=== PATIENT | male | born 1985 | race Caucasian/White ===

== ENCOUNTER 2016-03-20 09:56 | Emergency (ER) | payer BC ==
[2016-03-20 10:24] VITALS: BP 123/81
== END 2016-03-20 13:55 | disposition left against medical advice (07) ==
LOC: ED 09:56
DX: R07.9 Chest pain, unspecified (principal)
CPT/HCPCS: 93005

== ENCOUNTER 2016-03-21 04:48 | Emergency (ER) | payer BC ==
[2016-03-21 05:01] VITALS: BP 137/78
--- NOTE | 2016-03-21 05:50 | ED ---
Thomsa Buck Karl, scribed for Alejandro Vega MD on 03/21/16 at 0511 . HPI Chest Pain - HPI Summary HPI Summary: Pt is a 30 y/o male that presents to the ED c/o intermittent CP rated at a 4/ 10. Pt reported that his pain began yesterday at approx 02:00 and is aggravated by laying down, swallowing, and taking deep breaths. Pt stated he believes it is esophageal pain and not CP because it hurts mid way down his sternum when he swallows, stating he feels a "sharp pain" on the right side of his esophagus. Pt stated that he has taken ibuprofen and pepto bismol but neither have alleviated his symptoms. Hx: GERD. - History of Current Complaint Chief Complaint: EDChestPainROMI Time Seen by Provider: 03/21/16 05:07 Hx Obtained From: Patient Timing: Constant Initial Severity: Mild Current Severity: Mild Pain Intensity: 4 - chest/esophageal pain Pain Scale Used: 0-10 Numeric Chest Pain Location: Mid Sternal Character: Sharp/Stabbing Aggravating Factor(s): Position - laying down, Deep Breaths, Other: - swallowing Alleviating Factor(s): Nothing Associated Signs and Symptoms: Positive: Chest Pain - Allergy/Home Medications Allergies/Adverse Reactions: Allergies Allergy/AdvReac Type Severity Reaction Status Date / Time No Known Allergies Allergy Verified 03/21/16 05:01 PMH/Surg Hx/FS Hx/Imm Hx Endocrine/Hematology History: Denies: Hx Anticoagulant Therapy, Hx Diabetes, Hx Thyroid Disease Cardiovascular History: Denies: Hx Hypertension, Hx Pacemaker/ICD Respiratory History: Denies: Hx Asthma, Hx Chronic Obstructive Pulmonary Disease (COPD) GI History: Denies: Hx Ulcer Sensory History: Denies: Hx Hearing Aid Psychiatric History: Denies: Hx Panic Disorder Infectious Disease History: No Infectious Disease History: Denies: Hx Hepatitis, Hx Human Immunodeficiency Virus (HIV), Traveled Outside the [place] in Last 30 Days - Family History Known Family History: Positive: Hypertension, Diabetes - Social History Alcohol Use: None Substance Use Type: Reports: None Amount Used/How Often: 2 cigs per day Review of Systems Constitutional: Negative Eyes: Negative ENT: Negative Positive: Chest Pain - "esophageal pain" Respiratory: Negative Gastrointestinal: Negative Genitourinary: Negative Musculoskeletal: Negative Skin: Negative Neurological: Negative Psychological: Normal All Other Systems Reviewed And Are Negative: Yes Physical Exam Triage Information Reviewed: Yes Vital Signs On Initial Exam: Initial Vitals Temp Pulse Resp BP Pulse Ox 98.4 F 85 12 137/78 100 03/21/16 04:59 03/21/16 04:59 03/21/16 04:59 03/21/16 04:59 03/21/16 04:59 Vital Signs Reviewed: Yes Appearance: Positive: Well-Appearing, No Pain Distress, Thin Skin: Positive: Warm Eyes: Positive: NORRIS ENT: Positive: Hearing grossly normal Neck: Positive: Supple Respiratory/Lung Sounds: Positive: Clear to Auscultation, Breath Sounds Present Cardiovascular: Positive: Normal Abdomen Description: Positive: Nontender, Soft Bowel Sounds: Positive: Present Musculoskeletal: Positive: Strength/ROM Intact Neurological: Positive: Sensory/Motor Intact, Alert, Oriented to Person Place, Time Psychiatric: Positive: Normal Diagnostics - Vital Signs Vital Signs Temp Pulse Resp BP Pulse Ox 03/21/16 04:59 98.4 F 85 12 137/78 100 - Laboratory Lab Statement: Any lab studies that have been ordered have been reviewed, and results considered in the medical decision making process. - Radiology cxr Xray Interpretation: No Acute Changes Radiology Interpretation Completed By: ED Physician - EKG 05:02 EKG Interpretation: NSR at 72 bpm, No STEMI Re-Evaluation - Re-Evaluation First Eval Re-Evaluation Time: 06:25 - results d/w pt Change: Improved Chest Pain Course/Dx - Diagnoses Provider Diagnoses: Chest pain, Dyspepsia Discharge - Discharge Plan Condition: Stable Disposition: HOME Prescriptions: Famotidine TAB* [Pepcid TAB*] 20 mg PO BID #14 tab Patient Education Materials: Diet for Ulcers and Gastritis (ED), Gastroesophageal Reflux Disease (ED), Esophageal Spasm (ED) Referrals: No Primary Care Phys,NOPCP [Primary Care Provider] - Markus Gutierrez MD [Medical Doctor] - 1 Week The documentation as recorded by the Thomas jim Karl accurately reflects the service I personally performed and the decisions made by me, Alejandro Vega MD.
--- NOTE | 2016-03-21 07:35 | RAD ---
HISTORY: Chest pain COMPARISONS: None VIEWS: 2: Frontal dual-energy and lateral views of the chest. FINDINGS: CARDIOMEDIASTINAL SILHOUETTE: The cardiomediastinal silhouette is normal. CARLOS A: The carlos a are normal. PLEURA: The costophrenic angles are sharp. No pleural abnormalities are noted. LUNG PARENCHYMA: There is a calcified granuloma of the left lower lung field on the frontal view. ABDOMEN: The upper abdomen is clear. There is no subphrenic gas. BONES AND SOFT TISSUES: No bone or soft tissue abnormalities are noted. OTHER: None. IMPRESSION: NO ACTIVE CARDIOPULMONARY DISEASE.
== END 2016-03-21 07:00 | disposition home or self-care (01) ==
LOC: ED 04:48
DX: R07.9 Chest pain, unspecified (principal); R10.13 Epigastric pain
CPT/HCPCS: 71020; 93005; 99282

== ENCOUNTER 2017-12-16 13:44 | Emergency (ER) | payer BC, OTHER ==
--- OUTSIDE RECORDS SUMMARY | 2017-12-16 14:31 | XMS REPORT ---
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 Cigarette Use Patient is a current cigarette 5-6 cigs a day , trying to quit smoker, smokes every day , has quit for almost 1 year in past ETOH Use 1 Jigger scotch a week Allergies, Adverse Reactions, Alerts Description No Information Medications Medication Date Status Form Strength Qnty SIG Indications Ordering Provider No Active 11/18/2017 Active Unknown Medications Vital Signs Date Vital Result Comment 11/18/2017 BP Systolic 128 mmHg BP Diastolic 72 mmHg Heart Rate 88 /min Body Temperature 97.7 F Respiratory Rate 18 /min Height 68 inches 5'8" Weight 207.12 lb BMI (Body Mass Index) 31.5 kg/m2 Right Visual Acuity Distance 20 Left Visual Acuity Distance 20 Results Test Date Test Result H/L Range Note Ua - Non Micro (Fma) 11/18/2017 Appearance clear Color yellow Glucose, Urine (Fma/CMC/CTX) neg Bilirubin neg Ketones neg SP Grav 1.025 Blood neg PH 5.5 Protein neg Urobil 0.2 Nitrite neg Leukocytes (Fma/CMC/Centrex) trace Procedures Description No Information Plan of Care 11/18/2017 - Jed Dove-CZ02.4 Encounter for examination for driving licenseFollow up:Followup:. (Follow up)AllNew Medication:No Active MedicationsComments:~B_~U_Medication Management~b_~u_ Patient Understands medications he's taking? Yes No no routine meds Are there Barriers to Adherence? Yes No na Has the patient been asked about herbal supplements and therapies, and OTC meds? Yes No ~B_~U_Care Plan~b_~u_1. Patient has beenqueried about patient's goals/preferences and functional/ lifestyle goals at relevant visits. If relevant, describe: na2. Treatment goals as explained to the patient: aboveroutine health maintenance and disease prevention 3. Are there barriers to meeting treatment goals? Yes No If Yes, please describe:4. Self-Management goals as described to the patient: Yes No you appear to be in good health working on weight loss and stopping smoking are your primary goals to maintain good helath you are cleared for a 2 year dot cert
--- NOTE | 2017-12-16 14:43 | RAD ---
HISTORY: left ankle injury COMPARISONS: None VIEWS: 3 , Frontal, lateral, and oblique views of the left ankle FINDINGS: BONE DENSITY: Normal. BONES: There is no displaced fracture. JOINTS: There is no arthropathy. ALIGNMENT: There is no dislocation. SOFT TISSUES: There is mild circumferential soft tissue swelling. OTHER FINDINGS: None. IMPRESSION: SOFT TISSUE SWELLING. NO ACUTE OSSEOUS INJURY. IF SYMPTOMS PERSIST, RECOMMEND REPEAT IMAGING.
--- NOTE | 2017-12-16 14:48 | ED ---
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 He states about 2 months ago he injured the ankle but an x-ray was obtained. He states it is felt tight over the last 2 months and now rolled it, inverting the ankle today. He endorses swelling without ecchymosis. There is no erythema to the area. Denies any pain to the left lower extremity. 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 Ice is applied on arrival. He is concerned over fracture. Denies any numbness or tingling. Pulses +2 intact bilaterally. - History of Current Complaint Chief Complaint: EDExtremityLower Stated Complaint: LT ANKLE INJURY Time Seen by Provider: 12/16/17 14:00 Hx Obtained From: Patient Onset of Pain: Hours Onset/Duration: Hours Severity Initially: Moderate Severity Currently: Moderate Pain Intensity: 6 Pain Scale Used: 0-10 Numeric Timing: Constant Location: Is Discrete @ - left lateral ankle pain Character Of Pain: Aching Associated Signs And Symptoms: Positive: Swelling Aggravating Factor(s): Standing, Ambulation Alleviating Factor(s): Rest Able to Bear Weight: No - Risk Factors Gout Risk Factors: Negative DVT Risk Factors: Negative Septic Arthritis Risk Factor: Negative - Allergies/Home Medications Allergies/Adverse Reactions: Allergies Allergy/AdvReac Type Severity Reaction Status Date / Time No Known Allergies Allergy Verified 12/16/17 14:02 PMH/Surg Hx/FS Hx/Imm Hx Previously Healthy: Yes Endocrine/Hematology History: Denies: Hx Anticoagulant Therapy, Hx Diabetes, Hx Thyroid Disease Cardiovascular History: Denies: Hx Hypertension, Hx Pacemaker/ICD Respiratory History: Denies: Hx Asthma, Hx Chronic Obstructive Pulmonary Disease (COPD) GI History: Denies: Hx Ulcer Sensory History: Denies: Hx Hearing Aid Psychiatric History: Denies: Hx Panic Disorder - Immunization History Hx Pertussis Vaccination: No Immunizations Up to Date: Yes Infectious Disease History: No Infectious Disease History: Denies: Hx Hepatitis, Hx Human Immunodeficiency Virus (HIV), Traveled Outside the [place] in Last 30 Days - Family History Known Family History: Positive: Hypertension, Diabetes - Social History Occupation: Employed Full-time Lives: With Family Alcohol Use: None Hx Substance Use: No Substance Use Type: Reports: None Hx Tobacco Use: Yes Smoking Status (MU): Unknown if Ever Smoked Amount Used/How Often: 2 cigs per day Review of Systems Constitutional: Negative Negative: Fever, Chills, Fatigue, Skin Diaphoresis Negative: Palpitations, Chest Pain Negative: Shortness Of Breath, Cough Genitourinary: Negative Positive: no symptoms reported, see HPI Negative: Arthralgia, Myalgia Skin: Negative Neurological: Negative All Other Systems Reviewed And Are Negative: Yes Physical Exam Triage Information Reviewed: Yes Vital Signs On Initial Exam: Initial Vitals Temp Pulse Resp BP Pulse Ox 99.3 F 121 16 148/92 99 12/16/17 13:59 12/16/17 13:59 12/16/17 13:59 12/16/17 13:59 12/16/17 13:59 Vital Signs Reviewed: Yes Appearance: Positive: Well-Appearing, Well-Nourished Skin: Positive: Warm, Skin Color Reflects Adequate Perfusion Head/Face: Positive: Normal Head/Face Inspection Eyes: Positive: EOMI, NORRIS, Conjunctiva Clear Neck: Positive: Supple, No Lymphadenopathy Respiratory/Lung Sounds: Positive: Clear to Auscultation, Breath Sounds Present Cardiovascular: Positive: RRR, Pulses are Symmetrical in both Upper and Lower Extremities Musculoskeletal: Positive: Normal, Strength/ROM Intact Neurological: Positive: Sensory/Motor Intact, Alert, Oriented to Person Place, Time, Speech Normal Psychiatric: Positive: Normal, Affect/Mood Appropriate Diagnostics - Vital Signs Vital Signs Temp Pulse Resp BP Pulse Ox 12/16/17 13:59 99.3 F 121 16 148/92 99 - Laboratory Lab Statement: Any lab studies that have been ordered have been reviewed, and results considered in the medical decision making process. Lower Extremity Course/Dx - Course Course Of Treatment: On physical examination, pulses +2 intact bilaterally both posterior tibial and pedal. Patient has been otherwise healthy and takes no medications. 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 Denies any numbness or tingling. Patient is able to dorsiflex the foot but is unable to plantar flex the foot. Unable to eat for 2 or invert without pain. He has been unable to ambulate since the injury. - Diagnoses Differential Diagnosis/HQI/PQRI: Positive: Contusion, Sprain, Strain Provider Diagnoses: Ankle sprain Discharge - Sign-Out/Discharge Documenting (check all that apply): Patient Departure - Discharge Plan Condition: Stable Disposition: HOME Referrals: No Primary Care Phys,NOPCP [Primary Care Provider] - - Billing Disposition and Condition Condition: STABLE Disposition: Home
[2017-12-16 15:22] VITALS: BP 124/84
== END 2017-12-16 15:20 | disposition home or self-care (01) ==
LOC: ED 13:44
DX: S93.402A Sprain of unspecified ligament of left ankle, initial encounter (principal); X50.1XXA Overexertion from prolonged static or awkward postures, initial encounter; Y92.9 Unspecified place or not applicable; Z72.0 Tobacco use
CPT/HCPCS: 99282

== ENCOUNTER 2019-06-04 23:50 | Emergency (ER) | payer SELFPAY ==
[2019-06-04 23:57] VITALS: BP 161/104
--- NOTE | 2019-06-05 00:28 | ED ---
Throat Pain/Nasal Congestion - HPI Summary HPI Summary: Patient is a 33 year-old male presenting to [facility] with a chief complaint of sore throat for two days. He reports he feels a lump in his throat with pain rated 6/10 in severity. He denies any fevers, chills, body aches, shortness of breath, or cough. He has been able to eat mashed potatoes and tolerate liquids but there is pain with swallowing. He states he is very anxious now. He has not used any medications for treatment. No recent travel. No past medical history. Former smoker, no EtOH, no substance use. Medications reviewed. Allergies noted. - History of Current Complaint Chief Complaint: EDThroatPain Time Seen by Provider: 06/05/19 00:03 Hx Obtained From: Patient Onset/Duration: Lasting Days, Still Present Severity: Moderate Associated Signs And Symptoms: Positive: Dysphagia Cough: None Related History: Other (Noted In Comments) - former smoker - Allergies/Home Medications Allergies/Adverse Reactions: Allergies Allergy/AdvReac Type Severity Reaction Status Date / Time No Known Allergies Allergy Verified 06/04/19 23:57 Home Medications: Home Medications NK [No Home Medications Reported] 07/25/18 [History Confirmed 06/05/19] PMH/Surg Hx/FS Hx/Imm Hx Endocrine/Hematology History: Denies: Hx Anticoagulant Therapy, Hx Diabetes, Hx Thyroid Disease Cardiovascular History: Denies: Hx Hypertension, Hx Pacemaker/ICD Respiratory History: Denies: Hx Asthma, Hx Chronic Obstructive Pulmonary Disease (COPD) GI History: Denies: Hx Ulcer Sensory History: Denies: Hx Hearing Aid Psychiatric History: Denies: Hx Panic Disorder - Surgical History Surgical History: None Surgery Procedure, Year, and Place: none Infectious Disease History: No Infectious Disease History: Denies: Hx Hepatitis, Hx Human Immunodeficiency Virus (HIV), Traveled Outside the [place] in Last 30 Days - Family History Known Family History: Positive: Hypertension, Diabetes - Social History Alcohol Use: None Hx Substance Use: No Substance Use Type: Reports: None Hx Tobacco Use: Yes Smoking Status (MU): Former Smoker Amount Used/How Often: 2 cigs per day - Additional Comments History Additional Comments: former smoker Review of Systems - ROS Summary Review of Systems Summary: Home Medications Medication Instructions Recorded Confirmed Type NK [No Home Medications Reported] 07/25/18 07/25/18 History Negative: Fever, Chills Positive: Sore Throat Negative: Shortness Of Breath, Cough Negative: Myalgia Positive: Anxious All Other Systems Reviewed And Are Negative: Yes Physical Exam - Summary Physical Exam Summary: General: Well-developed, Well-nourished male. Moderately anxious appearing. No acute distress. HEENT: Normocephalic, Atraumatic. Eyes: Conjuctiva normal, PERRL. Oropharynx: Mildly erythematous, Clear, Mucous membranes moist, (- ) exudates. Neck: Soft, FROM, (-) lymphadenopathy, (-) thyromegaly, (-) JVD. Cardiovascular: Normal sinus rhythm, (-) murmur. Lungs: Clear to auscultation bilaterally (-) wheezes, (-) rales, (-) rhonchi. Abdomen: Soft, non-tender, non-distended, (-) organomegaly, normal bowel sounds. Back: (-) CVA tenderness Extremities: No edema. Skin: Warm, dry, (-) rash. Neuro: Alert and oriented x3, moves all extremities equally. No ataxia. No gait disturbance. No sensory deficit. Normal strength, normal sensation. Psychiatric: Mood normal, affect normal. Triage Information Reviewed: Yes Vital Signs On Initial Exam: Initial Vitals Temp Pulse Resp BP Pulse Ox 98.1 F 100 20 161/104 98 06/04/19 23:54 06/04/19 23:54 06/04/19 23:54 06/04/19 23:54 06/04/19 23:54 Vital Signs Reviewed: Yes Procedures - Sedation Patient Received Moderate/Deep Sedation with Procedure: No Diagnostics - Vital Signs Vital Signs Temp Pulse Resp BP Pulse Ox 06/04/19 23:54 98.1 F 100 20 161/104 98 - Laboratory Lab Statement: Any lab studies that have been ordered have been reviewed, and results considered in the medical decision making process. Re-Evaluation - Re-Evaluation First Eval Re-Evaluation Time: 00:45 Comment: I discussed all results. Discussed all symptoms that warrant return to the ED. EENT Course/Dx - Course Course Of Treatment: 33-year-old male presents from home by private vehicle complaining of a lump in his throat. Difficulty swallowing. 2 days. Denies any fevers. No significant cough. Patient very anxious upon arrival. He is able to tolerate soft foods and liquids. He is afebrile upon arrival. Oropharynx is very erythematous. Strep throat culture negative. Patient discharged home with throat pain possible pharyngitis. Advised plenty of fluids and rest. Tylenol as needed. Follow up with PCP. Follow sooner for any worsening symptoms. - Diagnoses Provider Diagnoses: Pharyngitis Discharge ED - Sign-Out/Discharge Documenting (check all that apply): Patient Departure - Patient will be discharged home. - Discharge Plan Condition: Stable Disposition: HOME Patient Education Materials: Pharyngitis (ED) Referrals: [facility] [Outside] - 3 Days Additional Instructions: Follow up with your primary care provider in 2-3 days. Return to the emergency department for any new or worsening symptoms. - Billing Disposition and Condition Condition: STABLE Disposition: Home - Attestation Statements Document Initiated by Jorge: Yes Documenting Scribe: Chante Hunter Provider For Whom Jorge is Documenting (Include Credential): Faith Billy MD Scribe Attestation: Chante Buck, scribed for Faith Billy MD on 06/05/19 at 0229. Scribe Documentation Reviewed: Yes Provider Attestation: The documentation as recorded by the Chante jim accurately reflects the service I personally performed and the decisions made by me, Faith Billy MD Status of Scribe Document: Viewed
[2019-06-05 00:41] LABS: Rapid Strep Molecular Negative (Negative)
== END 2019-06-05 00:51 | disposition home or self-care (01) ==
LOC: ED 23:50
DX: J02.9 Acute pharyngitis, unspecified (principal); F41.9 Anxiety disorder, unspecified; Z87.891 Personal history of nicotine dependence
CPT/HCPCS: 87651; 99281